=== PATIENT | male | born 1995 | race African-American/Black ===

== ENCOUNTER 2021-08-01 09:08 | Emergency (ER) | payer SELFPAY ==
--- NOTE | 2021-08-01 11:43 | EDPHYS ---
Physician Documentation [facility] Name: Josue Solo Jr Age: 26 yrs Sex: Male : 1995 Arrival Date: 08/01/2021 Time: 09:10 Bed 19 Private MD: ED Physician Humberto Medina HPI: 08/02 08:38 This 26 yrs old Black Male presents to ER via Ambulatory with complaints of fatigue. kdr 08:38 Patient states that he has recently had Covid and is more less resolved. His work kdr however is requesting that he have a work note releasing him to return. He indicated that he had a Covid test at another facility yesterday and that was negative the plan here today is to repeat the Covid test. Onset: The symptoms/episode began/occurred 2 week(s) ago. Severity of symptoms: At their worst the symptoms were mild in the emergency department the symptoms are unchanged. The patient has experienced a previous episode. The patient has been recently seen by a physician: the patient's primary care provider. Historical: - Allergies: 08/01 09:14 No Known Allergies; aa5 - PMHx: 09:14 None; aa5 - PSHx: 09:14 None; aa5 - Immunization history:: Client reports having NOT received the Covid vaccine. - Social history:: Smoking status: Patient reports the use of cigarette tobacco products, smokes one pack cigarettes per day. Vital Signs: 09:12 BP 121 / 79; Pulse 68; Resp 16 S; Temp 98.1(TE); Pulse Ox 100% on R/A; aa5 MDM: 11:43 Patient medically screened. kdr 08/01 10:01 Order name: COVID-19 : Document "Date of Symptom Onset" if Symptomatic. kdr 08/01 10:42 Order name: SARS-COV-2 RT PCR EDMS Administered Medications: No medications were administered Disposition Summary: 08/01/21 11:43 Discharge Ordered Location: Home kdr Problem: new kdr Symptoms: have improved kdr Condition: Stable kdr Diagnosis - Covid - returned to work kdr Followup: kdr - With: Private Physician - When: 2 - 3 days - Reason: If symptoms return, Further diagnostic work-up, Recheck today's complaints, Continuance of care, Re-evaluation by your physician Discharge Instructions: - Discharge Summary Sheet kdr - COVID-19 kdr Forms: - Medication Reconciliation Form kdr - Thank You Letter kdr - Work release form tc5 Signatures: Dispatcher [employer] EDHumberto Acuña MD MD kdr Ann-Marie Dumont RN RN aa5 Corrections: (The following items were deleted from the chart) 10:43 10:02 CORONAVIRUS ordered. EDMS EDMS
--- NOTE | 2021-08-01 11:43 | ER ---
Nurse's Notes [facility] Name: Josue Solo Jr Age: 26 yrs Sex: Male : 1995 Arrival Date: 08/01/2021 Time: 09:10 Bed 19 Private MD: Diagnosis: Covid - returned to work Presentation: 08/01 09:12 Chief complaint: Patient states: "I just got rid of covid and tested negative but I've aa5 been feeling sluggish and my throat has been hurting". Pt states ". Pt states "what I really need is a work release". Coronavirus screen: sore throat. Ebola Screen: Patient negative for fever greater than or equal to 101.5 degrees Fahrenheit, and additional compatible Ebola Virus Disease symptoms. Initial Sepsis Screen: Does the patient meet any 2 criteria? No. Patient's initial sepsis screen is negative. Does the patient have a suspected source of infection? No. Patient's initial sepsis screen is negative. Risk Assessment: Do you want to hurt yourself or someone else? Patient reports no desire to harm self or others. Onset of symptoms was 2020. 09:12 Method Of Arrival: Ambulatory aa5 09:12 Acuity: ANUJ 5 aa5 Historical: - Allergies: 09:14 No Known Allergies; aa5 - PMHx: 09:14 None; aa5 - PSHx: 09:14 None; aa5 - Immunization history:: Client reports having NOT received the Covid vaccine. - Social history:: Smoking status: Patient reports the use of cigarette tobacco products, smokes one pack cigarettes per day. Screenin:27 Abuse screen: Denies threats or abuse. Denies injuries from another. Abuse screen: tc5 Denies threats or abuse. Denies injuries from another. Nutritional screening: No deficits noted. On. Tuberculosis screening: No symptoms or risk factors identified. Fall Risk None identified. Assessment: 09:25 General: Appears in no apparent distress. Behavior is calm, cooperative, appropriate tc5 for age, Reports pt states he had COVID a week and a half ago, states he is feeling fine, just needs a evaluation and a doctors note so he can go back to work.. Vital Signs: 09:12 BP 121 / 79; Pulse 68; Resp 16 S; Temp 98.1(TE); Pulse Ox 100% on R/A; aa5 ED Course: 09:10 Patient arrived in ED. ds1 09:12 Arm band placed on. aa5 09:14 Triage completed. aa5 09:21 Cheryl Florence, RN is Primary Nurse. tc5 09:23 Humberto Medina MD is Attending Physician. kdr 10:27 COVID-19 : Document "Date of Symptom Onset" if Symptomatic. Sent. tc5 Administered Medications: No medications were administered Outcome: 11:43 Discharge ordered by . kdr 11:56 Patient left the ED. tc5 Signatures: Humberto Medina MD MD kdr Rina Pacheco ds1 Ann-Marie Dumont RN RN val5 Cheryl Florence, DIMITRIS RN tc5
[2021-08-01 12:01] VITALS: BP 121/79; TEMP 98.1; O2SAT 100
== END 2021-08-01 11:56 | disposition home or self-care (01) ==
LOC: ER 09:08
DX: Z02.79 Encounter for issue of other medical certificate (principal)
CPT/HCPCS: 99282; U0003

== ENCOUNTER 2022-06-26 13:46 | Emergency (ER) | payer SELFPAY ==
--- OUTSIDE RECORDS SUMMARY | 2022-06-26 13:48 | XMS REPORT | Continuity of Care Document ---
:1995 Author Organization [facility] t Address [address] [place] [address] Care Team Providers Name Role Phone MARIA L_JANN Attending Clinician Unavailable Shield Attending Clinician Unavailable MARIA L_JANN Admitting Clinician Unavailable Shield Admitting Clinician Unavailable Payers Payer Name Policy Type Policy Number Effective Date Expiration Date S [place] [id number] 2019 2020 00:00: 00 [place] ([place] 00:00:00 Problems This patient has no known problems. Allergies, Adverse Reactions, Alerts This patient has no known allergies or adverse reactions. Medications This patient has no known medications. Procedures This patient has no known procedures. Encounters Start End Encounter Admission Attending Care Care Encounter Source Date/Time Date/Time Type Type Clinicians Facility Department ID 2022-01-09 2022-01-09 Outpatient [facility] [id number] [place] 05:21:00 05:21:00 [facility] 2021-11-16 2021-11-16 [id number] [place] 07:32:00 07:32:00 [facility] 2020-06-16 2020-06-16 Outpatient [facility] [id number] [place] 03:17:00 03:17:00 [id number] [facility] 2020-04-26 2020-04-26 Outpatient [facility] [id number] [place] 12:29:00 12:29:00 JOSE [id number] [facility] Results This patient has no known results.
--- NOTE | 2022-06-26 14:13 | EDPHYS ---
Physician Documentation [facility] Name: Josue Solo Jr Age: 27 yrs Sex: Male : 1995 Arrival Date: 06/26/2022 Time: 13:48 Bed Waiting Private MD: ED Physician Humberto Medina HPI: 06/26 14:20 This 27 yrs old Black Male presents to ER via Ambulatory with complaints of Needs Work jh7 Release. 14:20 Patient reports that he had a stomach bug over the past week and needs a note to return jh7 to work. Denies any symptoms at this time.. Historical: - Allergies: 14:17 No Known Allergies; bm7 - Immunization history:: Adult Immunizations up to date. - Social history:: Smoking status: Patient denies any tobacco usage or history of. ROS: 14:20 Constitutional: Negative for fever, chills, and weight loss, Eyes: Negative for injury, jh7 pain, redness, and discharge, ENT: Negative for injury, pain, and discharge, Cardiovascular: Negative for chest pain, palpitations, and edema, Respiratory: Negative for shortness of breath, cough, wheezing, and pleuritic chest pain, Abdomen/GI: Negative for abdominal pain, nausea, vomiting, diarrhea, and constipation, Back: Negative for injury and pain, Skin: Negative for injury, rash, and discoloration, Neuro: Negative for headache, weakness, numbness, tingling, and seizure. 14:20 All other systems are negative. Exam: 14:20 Constitutional: This is a well developed, well nourished patient who is awake, alert, jh7 and in no acute distress. Head/Face: Normocephalic, atraumatic. Cardiovascular: Regular rate and rhythm with a normal S1 and S2. No gallops, murmurs, or rubs. Normal PMI, no JVD. No pulse deficits. Respiratory: Lungs have equal breath sounds bilaterally, clear to auscultation and percussion. No rales, rhonchi or wheezes noted. No increased work of breathing, no retractions or nasal flaring. Abdomen/GI: Soft, non-tender, with normal bowel sounds. No distension or tympany. No guarding or rebound. No evidence of tenderness throughout. Skin: Warm, dry with normal turgor. Normal color with no rashes, no lesions, and no evidence of cellulitis. Neuro: Awake and alert, GCS 15, oriented to person, place, time, and situation. Normal gait. Vital Signs: 14:13 BP 126 / 64; Pulse 64; Resp 18; Temp 97.8; Pulse Ox 99% ; Weight 74.84 kg; Height 6 ft. bm7 1 in. (185.42 cm); Pain 0/10; 14:13 Body Mass Index 21.77 (74.84 kg, 185.42 cm) 7 MDM: 14:13 Patient medically screened. [facility] 14:15 Differential diagnosis: Normal exam, no complaints. Data reviewed: vital signs, nurses [facility] notes. Data interpreted: Pulse oximetry: is 99 %. Interpretation: normal. Counseling: I had a detailed discussion with the patient and/or guardian regarding: the historical points, exam findings, and any diagnostic results supporting the discharge/admit diagnosis. ED course: Work note provided. Administered Medications: No medications were administered Disposition: 15:44 Co-signature as Attending Physician, Humberto Medina MD I agree with the assessment and kdr plan of care. Disposition Summary: 06/26/22 14:13 Discharge Ordered Location: Home [facility] Problem: new [facility] Symptoms: have improved [facility] Condition: Stable [facility] Diagnosis - Encounter for other general examination [facility] Followup: [facility] - With: Private Physician - When: As needed - Reason: Discharge Instructions: - Discharge Summary Sheet [facility] - Form - Excuse from Work, School, or Physical Activity [facility] Forms: - Medication Reconciliation Form [facility] - Thank You Letter [facility] Signatures: Humberto Medina MD MD [facility] Clau Purcell, RN RN 7 Janett Hines FNP FNP [facility]
--- NOTE | 2022-06-26 14:23 | ER ---
Nurse's Notes [facility] Name: Josue Solo Jr Age: 27 yrs Sex: Male : 1995 Arrival Date: 06/26/2022 Time: 13:48 Bed Waiting Private MD: Diagnosis: Encounter for other general examination Presentation: 06/26 14:13 Chief complaint: Patient states: Needs work release, was around some people who had bm7 stomach bug and was feeling bad, is ok now. Coronavirus screen: Client denies travel out of the [place] in the last 14 days. At this time, the client does not indicate any symptoms associated with coronavirus-19. Ebola Screen: No symptoms or risks identified at this time. Initial Sepsis Screen: Does the patient meet any 2 criteria? No. Patient's initial sepsis screen is negative. Does the patient have a suspected source of infection? No. Patient's initial sepsis screen is negative. Risk Assessment: Do you want to hurt yourself or someone else? Patient reports no desire to harm self or others. Onset of symptoms was June 26, 2022. 14:13 Method Of Arrival: Ambulatory bm7 14:13 Acuity: ANUJ 5 bm7 Triage Assessment: 14:17 General: Appears in no apparent distress. Behavior is calm, cooperative, appropriate bm7 for age. Pain: Denies pain. Historical: - Allergies: 14:17 No Known Allergies; bm7 - Immunization history:: Adult Immunizations up to date. - Social history:: Smoking status: Patient denies any tobacco usage or history of. Screenin:20 Abuse screen: Denies threats or abuse. Denies injuries from another. Nutritional bm7 screening: No deficits noted. Tuberculosis screening: No symptoms or risk factors identified. Fall Risk None identified. Assessment: 14:20 Reassessment: No changes from previously documented assessment. bm7 Vital Signs: 14:13 BP 126 / 64; Pulse 64; Resp 18; Temp 97.8; Pulse Ox 99% ; Weight 74.84 kg; Height 6 ft. bm7 1 in. (185.42 cm); Pain 0/10; 14:13 Body Mass Index 21.77 (74.84 kg, 185.42 cm) bm7 ED Course: 13:48 Patient arrived in ED. rg4 13:58 Janett Hines FNP [facility] 7 13:58 Humberto Medina MD is Attending Physician. jh7 14:17 Triage completed. bm7 14:17 Arm band placed on right wrist. Patient notified of wait time. bm7 14:20 Patient has correct armband on for positive identification. bm7 14:20 No provider procedures requiring assistance completed. Patient did not have IV access bm7 during this emergency room visit. Administered Medications: No medications were administered Medication: 14:20 VIS not applicable for this client. bm7 Outcome: 14:13 Discharge ordered by . jh7 14:20 Discharged to home bm7 14:20 Discharged to home ambulatory. 14:20 Condition: good 14:20 Condition: good 14:20 Discharge instructions given to patient, Instructed on discharge instructions, Demonstrated understanding of instructions. 14:23 Patient left the ED. bm7 Signatures: Lanie Woody rg4 Clau Purcell, RN RN bm7 Janett Hines FNP [employer] [facility]
[2022-06-26 14:36] VITALS: BP 126/64; TEMP 97.8; O2SAT 99
== END 2022-06-26 14:23 | disposition home or self-care (01) ==
LOC: ER 13:46
DX: Z02.79 Encounter for issue of other medical certificate (principal)
CPT/HCPCS: 99281